=== PATIENT | female | born 1985 | race Caucasian/White ===

== ENCOUNTER 2016-07-11 13:30 | Day surgery (SDC) | payer BC ==
[~2016-07-11] VITALS: Ht 162.6 cm; Wt 63.6 kg
[2016-07-11 14:46] LABS: PH 7 (5-8); SQUAMOUS EPITHELIAL 0-2 /hpf; URINE APPEARANCE Clear; URINE BACTERIA None Seen /hpf; URINE BILIRUBIN Negative (NEGATIVE); URINE BLOOD Negative (NEGATIVE); URINE COLOR Straw; URINE GLUCOSE Negative (NEGATIVE); URINE KETONE Negative (NEGATIVE); URINE RBC None Seen /hpf; URINE UROBILINOGEN Negative (NEGATIVE); URINE WBC None Seen /hpf
[2016-07-11 14:48] LABS: BASO # 0.1 (0.0-0.2); BASO % 0.8 % (0.0-2.0); EOS # 0.1 (0.0-0.7); EOS % 2.1 % (0-4.0); GRAN # 4.1 (1.4-6.5); GRAN % 61.3 % (42.2-75.2); HEMATOCRIT 37.3 % (37.0-47.0); HEMOGLOBIN 12.4 g/dl (12.5-16.0); LYMPH # 1.9 (1.2-3.4); LYMPH % 29.3 % (20.0-51.0); MEAN CELL VOLUME 92 fl (80.0-100.0); MEAN CORPUSCULAR HEMOGLOBIN 31 pg (27.0-31.0); MEAN CORPUSCULAR HGB CONC 33 g/dl (33.0-37.0); MEAN PLATELET VOLUME 11.9 fl (7.4-10.4); MONO # 0.4 (0.1-0.6); MONO % 6.3 % (1.7-9.3); PLATELET COUNT 195 K/mm3 (130-400); RED BLOOD COUNT 4.05 M/mm3 (4.10-5.30); REDCELL DISTRIBUTION WIDTH-CV 13.1 % (11.5-14.5); WHITE BLOOD COUNT 6.6 K/mm3 (4.8-10.8)
[2016-07-11 15:01] LABS: ADJUSTED CALCIUM 9.2 mg/dL (8.4-10.2); ALANINE AMINOTRANSFERASE 31 U/L (9-52); ALBUMIN 4.2 gm/dL (3.5-5.0); ALKALINE PHOSPHATASE 60 U/L (50-136); ANION GAP 11 mmol/L (7-16); BILIRUBIN,TOTAL 0.7 mg/dL (0.0-1.0); BLOOD UREA NITROGEN 12 mg/dL (7-17); C-REACTIVE PROTEIN < 0.5 mg/dL (0.0-0.9); CALCIUM 9.4 mg/dL (8.4-10.2); CARBON DIOXIDE 29 mmol/L (22-30); CHLORIDE 101 mmol/L (98-107); CREATININE, serum 0.67 mg/dL (0.52-1.25); GLUCOSE 87 mg/dL (74-106); LIPASE 114 U/L (23-300); POTASSIUM 3.8 mmol/L (3.4-5.0); SODIUM 140 mmol/L (137-145); TOTAL PROTEIN 7.8 gm/dL (6.4-8.2)
[2016-07-11] MEDS ORDERED: NORCO 325 MG-51 TAB PO (19:02)
[2016-07-11 19:26] VITALS: BP 112/60; PULSE 56; TEMP 98.6
[2016-07-11 20:00] VITALS: BP 100/57; PULSE 83
[2016-07-11 20:15] VITALS: BP 105/66; PULSE 61
[2016-07-11 20:41] VITALS: BP 95/73; PULSE 61
[2016-07-11 21:11] VITALS: BP 106/68; PULSE 71
[2016-07-11 22:00] VITALS: BP 100/52; PULSE 60
[2016-07-12 01:52] VITALS: BP 102/57; PULSE 74; TEMP 97.4
[2016-07-12 05:00] VITALS: BP 90/49; PULSE 53; TEMP 98
== END 2016-07-12 11:02 | disposition home health service (06) ==
LOC: COL.ER 13:30 → SDCO 16:12 → SURG 19:40 → SDCO 07-12 11:02
PROVIDERS: Emergency Medicine
DX: K40.30 Unilateral inguinal hernia, with obstruction, without gangrene, not specified as recurrent (principal)
CPT/HCPCS: OP; J0690; J1100; J1170; J2405; J2704; J2765; J3010; J7030; Q9967

== ENCOUNTER → 2018-09-30 | Outpatient (CLI) | payer BC ==
[~2018-09-30] MED LIST: NORCO 325 MG-51 TAB PO
== END ==
LOC: COL.RAD 14:39
DX: J35.9 Chronic disease of tonsils and adenoids, unspecified (principal)
CPT/HCPCS: Q9967

== ENCOUNTER 2019-09-18 16:36 | Outpatient (CLI) | payer BC ==
[~2019-09-18] VITALS: Ht 124.5 cm; Wt 85.9 kg
--- NOTE | 2019-09-18 16:20 | NUR ---
Patient ambulatory to LR4, changed into gown, FHR/TOCO monitor placed and explained. Patient states " contractions started around 4pm yesterday and then went away, then they started back up today around 1pm and have became more regular and closer together" Patient states she had intercourse yesterday morning. Denies any leaking of fluid, vaginal bleeding, decreased movement of what she can feel. Plan of care discussed. SVE-0-1/-3 Dr. Mitchell updated and orders received.
[2019-09-18] MEDS ORDERED: PRENATAL TABLET PO (16:40)
[2019-09-18 17:00] VITALS: BP 120/70; PULSE 85; TEMP 98.4
--- NOTE | 2019-09-18 17:00 | NUR ---
Difficulty tracing FHR due to 20.4 week gestation. Patient updated on plan of care. 1814: Report given to Walter CORTEZ.
--- NOTE | 2019-09-18 17:13 | NUR ---
1713: Procardia 60mg XL PO given. 1715: IV started in right upper arm, blood obtained and to lab, NS bolus started.
[2019-09-18 17:28] LABS: COLLECTION METHOD CLEAN CATCH
[2019-09-18 17:34] LABS: BASO # 0.1 (0.0-0.2); BASO % 0.4 % (0.0-2.0); EOS # 0.1 (0.0-0.7); EOS % 0.8 % (0-4.0); GRAN # 8.6 (1.4-6.5); GRAN % 76.3 % (42.2-75.2); HEMOGLOBIN 11.6 g/dl (12.5-16.0); LYMPH # 1.7 (1.2-3.4); LYMPH % 14.9 % (20.0-51.0); MEAN CELL VOLUME 90 fl (80.0-100.0); MEAN CORPUSCULAR HEMOGLOBIN 31 pg (27.0-31.0); MEAN CORPUSCULAR HGB CONC 35 g/dl (33.0-37.0); MEAN PLATELET VOLUME 11.8 fl (7.4-10.4); MONO # 0.8 (0.1-0.6); MONO % 6.8 % (1.7-9.3); PLATELET COUNT 206 K/mm3 (130-400); RED BLOOD COUNT 3.75 M/mm3 (4.10-5.30); REDCELL DISTRIBUTION WIDTH-CV 13.2 % (11.5-14.5)
[2019-09-18 17:35] LABS: HEMATOCRIT 33.6 % (37.0-47.0)
[2019-09-18 17:38] LABS: MUCOUS Present /lpf; PH 7 (5-8); SQUAMOUS EPITHELIAL 0-2 /hpf; URINE APPEARANCE Hazy; URINE BACTERIA Rare /hpf; URINE BILIRUBIN Negative (NEGATIVE); URINE BLOOD Negative (NEGATIVE); URINE COLOR Yellow; URINE GLUCOSE Negative (NEGATIVE); URINE KETONE Negative (NEGATIVE); URINE LEUKOCYTE ESTERASE Negative (NEGATIVE); URINE NITRATE Negative (NEGATIVE); URINE PROTEIN(semi-quant) Negative (NEGATIVE); URINE RBC 0-2 /hpf; URINE UROBILINOGEN Negative (NEGATIVE)
[2019-09-18 17:59] LABS: ALBUMIN 3.7 gm/dL (3.5-5.0); BILIRUBIN,TOTAL 0.4 mg/dL (0.0-1.0); CALCIUM 9.3 mg/dL (8.4-10.2); CREATININE, serum 0.44 (0.52-1.25); POTASSIUM 3.5 mmol/L (3.4-5.0); TOTAL PROTEIN 7.1 gm/dL (6.4-8.2)
[2019-09-18 18:00] VITALS: BP 115/74; PULSE 96
--- NOTE | 2019-09-18 18:20 | NUR ---
SVE-0-1/-3 and patient tolerates well
[2019-09-18 18:45] VITALS: BP 116/80; PULSE 100
[2019-09-18 19:00] VITALS: BP 116/69; PULSE 93
[2019-09-18 20:15] VITALS: BP 116/67; PULSE 90; TEMP 98.5
--- NOTE | 2019-09-18 20:15 | NUR ---
Pt states "I feel much better".
--- NOTE | 2019-09-18 20:37 | NUR ---
Discharge instructions reviewed with pt. Questions invited and answered. Will stay on unit, until arrives in hospital parking lot.
== END 2019-09-18 20:37 | disposition home or self-care (01) ==
LOC: LDRO 16:36
PROVIDERS: Obstetrics & Gynecology
DX: O62.9 Abnormality of forces of labor, unspecified (principal); Z3A.20 20 weeks gestation of pregnancy
CPT/HCPCS: J7030

== ENCOUNTER 2019-11-09 22:45 | Outpatient (CLI) | payer BC ==
[~2019-11-09] VITALS: Ht 149.9 cm; Wt 90.9 kg
[~2019-11-09 22:45] MED LIST changes: +PRENATAL TABLET PO
--- NOTE | 2019-11-09 23:00 | NUR ---
2245 PT TO LR #5 AMBULATORY WITH , INTO GOWN AND INTO BED, EFM APPLIED AND VITAL SIGNS STABLE. 2256 EFM TOCO HELD BY NURSE AND FHT TRACING OBTAINED BASLEINE 14O'S NOTED ACCELS TO 155 NOTED, IRRITIABILY NOTED WITH NO CONTRACTIONS. PT STATES SHE STARTED LEAKING FLUID ON PANTIES AROUND 1PM TODAY AND WHEN HAD A QUARTER SIZE SPOT ON PAD. MOVEMENT NOTED WHEN THIS NURSE WAS HOLDING THE TOCO ON ABDOMEN. AMINOTRACE DONE WITH NO COLOR CHANGE NOTED AND SVE DONE PT IS A FINGER TIP, THICK AND -3. WILL OBSERVE PT AND FETUS AND CALL DR ONEIL, IS EXPLAINED TO AND PT.
[2019-11-09 23:10] VITALS: BP 114/56; PULSE 82
[2019-11-10 00:22] VITALS: BP 116/60; PULSE 96; TEMP 98.2
--- NOTE | 2019-11-10 00:37 | NUR ---
2310 EFM HELD AGAIN BY THIS NURSE, FHT'S 130'S, ACCELS NOTED TO 165 X2. NO DECELS NOTED AND VARIABLE IS MODERATE. NO CONTRACTIONS NOTED, IRRITABILTY AT TIMES.
== END 2019-11-10 00:20 | disposition home or self-care (01) ==
LOC: LDRO 22:45
DX: O62.9 Abnormality of forces of labor, unspecified (principal); O42.913 Preterm premature rupture of membranes, unspecified as to length of time between rupture and onset of labor, third trimester; Z3A.28 28 weeks gestation of pregnancy; R10.9 Unspecified abdominal pain

== ENCOUNTER → 2019-12-08 | Outpatient (CLI) | payer BC | LOC: DIA.ED 09:22 | DX: O24.419 Gestational diabetes mellitus in pregnancy, unspecified control (principal) | CPT/HCPCS: G0108 ==

== ENCOUNTER → 2019-12-10 | Outpatient (CLI) | payer BC | LOC: DIA.ED 08:19 | DX: O24.419 Gestational diabetes mellitus in pregnancy, unspecified control (principal) | CPT/HCPCS: G0108 ==

== ENCOUNTER → 2019-12-15 | Outpatient (CLI) | payer BC | LOC: DIA.ED 09:24 | DX: O24.419 Gestational diabetes mellitus in pregnancy, unspecified control (principal); Z79.4 Long term (current) use of insulin | CPT/HCPCS: G0108 ==

== ENCOUNTER → 2019-12-29 | Outpatient (CLI) | payer BC | LOC: DIA.ED 08:51 | DX: O24.419 Gestational diabetes mellitus in pregnancy, unspecified control (principal); Z79.4 Long term (current) use of insulin | CPT/HCPCS: G0108 ==

== ENCOUNTER 2020-01-04 11:04 | Outpatient (CLI) | payer BC ==
[~2020-01-04] VITALS: Ht 149.9 cm; Wt 90.5 kg
--- NOTE | 2020-01-04 11:00 | NUR ---
1100- Pt arrives on unit ambulatory with complaints of contranctions since last night. Pt changes into gown. 1103- Pt into bed, EFM and TOCO on and tracing. Assessment completed. Pt states she had red spotting last night and a small amount of brown discharge this morning. Pt unsure if leaking fluid, has not been wearing a pad. +FM. 1122- Amniotrace inconclusive due to dark brown vaginal discharge. SVE 1/50/high, unable to feel presenting part or BOW through cervix, no fluid noted with exam. Dark brown, thick discharge noted on glove.
[2020-01-04 11:08] VITALS: BP 114/66; PULSE 81; TEMP 98.1
[2020-01-04] MEDS ORDERED: NATURAL IRON65 MG (11:14)
--- NOTE | 2020-01-04 12:01 | NUR ---
1125- O2 sat monitor on and tracing. Maternal HR and HR tracing independently on strip.
--- NOTE | 2020-01-04 12:15 | NUR ---
1201- EFM and TOCO off. [employer] paperwork given and explained. Questions answered. Pt to to change into street clothes. 1215- Pt ambulates off unit in stable condition with .
== END 2020-01-04 12:15 | disposition home or self-care (01) ==
LOC: LDRO 11:04 → LDR 11:04 → LDRO 12:15
DX: O60.10X0 Preterm labor with preterm delivery, unspecified trimester, not applicable or unspecified (principal); Z3A.36 36 weeks gestation of pregnancy
CPT/HCPCS: OP

== ENCOUNTER 2020-01-07 23:29 | Outpatient (CLI) | payer BC ==
[~2020-01-07] VITALS: Ht 149.9 cm; Wt 90.9 kg
--- NOTE | 2020-01-07 00:35 | NUR ---
0035- pt. wheeled to the unit by nurse with spouse by her side. Reports having painful contractions every 2-5 minutes since around 9pm tonight. Denies LOF, blood and stated she feels baby move. Lost her mucous plug a few days ago. Pt. stated that she has been exposed to COVID-19 on 12/31/19, when a friend who was asymptomatic was over. Was tested on Sunday01/01/20 and came back positive. Pt. stated hugging and having direct contact with this patient for a few hours. 2339- EFM and TOCO on and tracing. Vitals signs taken, discussed process for labor check, answered questions. SVE /-3. Pt. in COVID-19 precautions.
[~2020-01-07 23:29] MED LIST changes: +NATURAL IRON65 MG
[2020-01-08] VITALS: BP 128/76; PULSE 83; TEMP 97.7
[2020-01-08 00:30] VITALS: BP 115/67; PULSE 75
[2020-01-08 01:00] VITALS: BP 109/66; PULSE 73
[2020-01-08 01:13] VITALS: BP 108/61; PULSE 65
--- NOTE | 2020-01-08 01:30 | NUR ---
0113- RN TO BEDSIDE WITH DISCHARGE INSTRUCTIONS. EFM AND TOCO TURNED OFF. PATIENT CHANGED INTO GOWN. 0130- PT WALKED OFF UNIT WITH AND RN BY HER SIDE. SHE VERBALLY STATED SHE UNDERSTOOD ALL INSTRUCTIONS WITH NO QUESTIONS.
== END 2020-01-08 01:30 | disposition home or self-care (01) ==
LOC: LDR 23:29 → LDRO 23:29
DX: O62.9 Abnormality of forces of labor, unspecified (principal); Z3A.00 Weeks of gestation of pregnancy not specified
CPT/HCPCS: OP

== ENCOUNTER 2020-01-21 16:06 | Outpatient (CLI) | payer BC ==
[~2020-01-21] VITALS: Ht 149.9 cm; Wt 92.3 kg
[2020-01-21 16:30] VITALS: BP 128/65; PULSE 99; TEMP 98.2
[2020-01-21 16:36] VITALS: BP 128/65; PULSE 99; TEMP 98.2
--- NOTE | 2020-01-21 16:52 | NUR ---
1630 PATIENT HERE FOR COMPLAINTS OF FEET SWOLLEN AND LEGS FEELING NUMB. EFM ON FHT 120 BABY VERY ACTIVE. NO CONTRACTIONS ON MONITOR OR FELT BY PATIENT. PATIENT DENIES HAVING HEADACHE OR PAIN. NO PAIN WITH URINATION. ASSESSMENT COMPLETED. +2 EDEMA TO FEET BUT NOT LEGS, NO REDNESS NOTED TO FEET OR LEGS, HOMANS SIGN NEGATIVE. DR DUONG CALLED AND UPDATED ON ALL ABOVE INFORMATION. ORDERS TO SEND PATIENT HOME TO FOLLOW UP WITH DR MCCLAIN IF BLOOD PRESSURE WNL AND BABY REACTIVE.
[2020-01-21 17:10] VITALS: BP 114/59; PULSE 88
--- NOTE | 2020-01-21 17:18 | NUR ---
NO CHANGES ALL DISCHARGE INSTRUCTIONS GIVEN.TO PATIENT WITH VERBAL UNDERSTANDING NOTED. PATIENT DISMISSED TO HOME
== END 2020-01-21 17:21 | disposition home or self-care (01) ==
LOC: COL.ER 16:06 → LDRO 16:06 → EDSTATUS 16:24 → LDRO 17:21
DX: O26.893 Other specified pregnancy related conditions, third trimester (principal); M79.89 Other specified soft tissue disorders; R20.0 Anesthesia of skin; Z3A.38 38 weeks gestation of pregnancy

== ENCOUNTER 2020-02-01 19:09 | Outpatient (CLI) | payer BC ==
[~2020-02-01] VITALS: Ht 149.9 cm; Wt 91.4 kg
--- NOTE | 2020-02-01 19:09 | NUR ---
1909 G7L3 40 WEEK GEST TO LR1 WITH C/O POSS ROM AT 1000 AND IRREGULAR CONTRACTIONS SINCE THEN. STATES DR SARAHI STRIPPED HER MEMBRANS A COUPLE OF DAYS AGO. EFM ON. SVE DONE WITH NEG AMNIOTRACE AMD NO AMNIOTIC FLUID NOTED. DILATED /-3 WITH LONG STRING OF MUCOUS ON GLOVE AFTER EXAM. ADM ASSESMENT DONE. PT IS PLANNING ON A . HAD A C/SECT 14 YEARS AGO WITH FIRST BABY AND THEN TWO VAGINAL DELIVERIES SINCE THEN. IS NOT SCHEDULED YET FOR A REPEAT C/SECT. GDM WITH MORNING BS OF 93 AND EVENING BS AT 1700 OF 139 AFTER EATING A BREAKFAST BAR. MANY QUESTIONS.
[2020-02-01 19:20] VITALS: BP 127/68; PULSE 81; TEMP 98.1
[2020-02-01 19:32] VITALS: BP 127/68; PULSE 81; TEMP 98.1
[2020-02-01 20:00] VITALS: BP 122/76; PULSE 78
--- NOTE | 2020-02-01 20:00 | NUR ---
2000 CONTRACTIONS NOTED ON EFM Q 13-20 MINUTES. MILD IN INTENSITY. DR ROLES HERE AND EFM REVIEWED. MAY GO HOME 2020 HOME WITH INSTRUCTIONS
== END 2020-02-01 20:20 | disposition home or self-care (01) ==
LOC: LDRO 19:09 → LDR 19:30 → LDRO 20:20
DX: O60.03 Preterm labor without delivery, third trimester (principal); Z3A.40 40 weeks gestation of pregnancy
CPT/HCPCS: OP

== ENCOUNTER 2020-02-03 01:54 | Inpatient (IN) | payer BC ==
[2020-02-03] VITALS (56 sets, daily range): BP systolic 89–138; BP diastolic 42–91; PULSE 63–101; TEMP 98–99.2
--- NOTE | 2020-02-03 02:05 | NUR ---
0205 G7L3 40.2 WEEK GEST WITH ONE PREVIOUS C/SECT AND 2 DELIVERIES. PLANNING ON WITH THIS DELIVERY ADM TO LR4. EFM ON. SVE /-3 WITH LARGE BAG OF WATER FELT. ADM ASSESSMENT DONE. WANTS EPIDURAL 0215 DR DUONG NOTIFIED AND ORDERS RECEIVED. 0220 IV FLUIDS LR STARTED AND MANAGER [employer] WASTEW[employer] CALLED FOR EPID. PERMITS SIGNED PER
--- NOTE | 2020-02-03 02:30 | NUR ---
0230 BLOOD SUGAR DONE = 110.
[2020-02-03 02:33] LABS: BASO % 0.3 % (0.0-2.0); EOS % 0.3 % (0-4.0); GRAN # 9.4 (1.4-6.5); GRAN % 81.6 % (42.2-75.2); HEMATOCRIT 36.3 % (37.0-47.0); HEMOGLOBIN 12.5 g/dl (12.5-16.0); LYMPH # 1.3 (1.2-3.4); MEAN CELL VOLUME 89 fl (80.0-100.0); MEAN CORPUSCULAR HEMOGLOBIN 31 pg (27.0-31.0); MEAN CORPUSCULAR HGB CONC 34 g/dl (33.0-37.0); MEAN PLATELET VOLUME 12.1 fl (7.4-10.4); MONO # 0.7 (0.1-0.6); MONO % 6.3 % (1.7-9.3); PLATELET COUNT 153 K/mm3 (130-400); RED BLOOD COUNT 4.06 M/mm3 (4.10-5.30)
--- NOTE | 2020-02-03 02:45 | NUR ---
0245 SITTING UP FOR EPID. SEE ANETHS RECORD FOR MORE INFORMATION.
--- NOTE | 2020-02-03 03:16 | NUR ---
0316 EPHEDRINE 10MG IVP GIVEN
--- NOTE | 2020-02-03 04:30 | NUR ---
0430 BLOOD SUGAR DONE = 110
--- NOTE | 2020-02-03 06:15 | NUR ---
Bedside report received from Glo CORTEZ. Patient resting and comfortable with epidural and no needs at this time. 0649: Blood sugar-100 SVE:6-7/90/-2 and bulgy bag noted. 0705: Dr. Mitchell called and updated. No new orders given.
--- NOTE | 2020-02-03 09:05 | NUR ---
Dr. Mitchell at bedside and assessing patient and FHR strip. 0906: SVE per physician /2 and AROM with meconium fluid noted. Patient educated on risks of meconium and plan. FHR baseline 135bpm. 0908: FHR decreasing to 115-120bpm for approx. 3 minutes and patient wedged left and FHR returns to baseline.
--- NOTE | 2020-02-03 09:45 | NUR ---
FHR tracing recurrent variable decelerations. 0950: FHR tracing variable deceleration to 70-90bpm for approx. 60 seconds and spontaneous return to baseline. Patient left lateral with right leg resting in stirrup.
--- NOTE | 2020-02-03 10:02 | NUR ---
SVE-8/90/-[address] Mitchell orders to start pitocin at this time. 1005: Plan of pitocin discussed with patient and patient agrees with plan. Pitocin started at 2mU per protocol.
--- NOTE | 2020-02-03 10:40 | NUR ---
FHR baseline 150-155 with minimal-moderate variability with recurrent variable decelerations decreasing 120bpm with spontaneous return to baseline. 1046: SVE-//-2 and FHR decreasing to 90-115bpm for approx. 4-5 minutes during this time patient turned left lateral and returns to baseline. 1110: Recurrent variable decelerations noted with contractions with minimal variability. 1114: FHR decreasing to 115bpm and and gradual increase to 145bpm. 1117: FHR decreasing to 105-120bpm for approx. 4 minutes. Patient repositioned and FHR returns to baseline of 160-165bpm. Dr. Millan called and notified as he is assuming care of from [id number]. Dr. Millan orders to give 500cc bolus of LR. 1132: LR bolus started. 1200: FHR baseline 175bpm with recurrent late decelerations. Patient being repositioned left lateral and right lateral. 1210: SVE-/-2 and FHR decreasing to 115bpm for 2minutes and patient in high fowlers position FHR returns to baseline 180bpm. 1218: Dr. Millan at bedside and SVE per physician 2 and discussing with patient and spouse the possible need for at this time due to FHR. Patient prepped for possible surgery. 1230: Dr. Mitchell at bedside and SVE [address] oygen on via mask. Oxygen via mask at 10ml/hr. 1231: FHR decreasing to 90-100bpm for approx. 2 minutes. Patient turned left lateral and FHR returning to 180-185bpm. Dr. Mitchell discussing the need for at this time and patient agrees. Plan and risk factors discussed. Patient prepped for . 1237: Patient off monitor and to OR via bed.
[2020-02-03] MEDS ORDERED: PERCOCET 325 MG1 TA2 PO (13:33)
[2020-02-03] MEDS ORDERED: MOTRIN 800800 MG/TAB PO (13:33)
--- NOTE | 2020-02-03 16:45 | NUR ---
Patient sits on edge of bed a dangles feet. Epidural catheter removed and patient tolerates well. Patient ambulates to bathroom, suazo catheter removed, pericare done, new gown/underwear/pad/abdominal binder on. Patient ambulates around room.
[2020-02-04 00:30] VITALS: BP 92/44; PULSE 80; TEMP 98
[2020-02-04 05:00] VITALS: BP 102/58; PULSE 61; TEMP 98
--- NOTE | 2020-02-04 08:44 | NUR ---
Initial visit attempt; Family resting, Edge Brusher left card of congratulations for the of their daughter and information regarding the availability of spiritual care at [place].
[2020-02-04 09:00] VITALS: BP 93/58; PULSE 70; TEMP 98.5
[2020-02-04 16:30] VITALS: BP 110/62; PULSE 91; TEMP 98.2
[2020-02-04 19:30] VITALS: BP 104/60; PULSE 90; TEMP 97.7
[2020-02-05 08:30] VITALS: BP 112/64; PULSE 91; TEMP 98.4
== END 2020-02-05 13:45 | disposition home or self-care (01) | DRG 788 ==
LOC: LDRO 01:54 → LDR 01:54 → LDRO 01:55 → LDR 01:56 → OB 13:30
PROVIDERS: Obstetrics & Gynecology; ADMIT Obstetrics & Gynecology
PROC: 10D00Z1 Extraction of Products of Conception, Low, Open Approach (ICD-10-PCS; principal; 2020-02-03)
DX: O34.211 Maternal care for low transverse scar from previous cesarean delivery (principal); Z37.0 Single live birth; O99.214 Obesity complicating childbirth; E66.9 Obesity, unspecified; O24.420 Gestational diabetes mellitus in childbirth, diet controlled; O99.02 Anemia complicating childbirth; D64.9 Anemia, unspecified; O77.0 Labor and delivery complicated by meconium in amniotic fluid; O69.89X0 Labor and delivery complicated by other cord complications, not applicable or unspecified; Z3A.40 40 weeks gestation of pregnancy
CPT/HCPCS: J0690; J1885; J2175; J2370; J2400; J2405; J2590; J2795; J3010; J7120